=== PATIENT | female | born 1960 | race Caucasian/White ===

== ENCOUNTER 2022-08-28 10:18 | Outpatient (CLI) | payer BC ==
[2022-08-28] MEDS ORDERED: Magnevist 469MG/ML 20 ML VIAL ONE (13:42)
== END 2022-08-28 10:19 | disposition home or self-care (01) ==
LOC: MRI 10:18
PROVIDERS: ATTEND Radiology Radiation Oncology
DX: D32.0 Benign neoplasm of cerebral meninges (principal)
CPT/HCPCS: 70553; 82565; A9579

== ENCOUNTER 2023-03-06 13:01 | Outpatient (CLI) | payer BC ==
[2023-03-06] MEDS ORDERED: Magnevist 469MG/ML 20 ML VIAL ONE (13:09)
== END 2023-03-06 13:02 | disposition home or self-care (01) ==
LOC: BICMRI 13:01
PROVIDERS: ATTEND Neurological Surgery
DX: D32.0 Benign neoplasm of cerebral meninges (principal); G93.6 Cerebral edema; M50.11 Cervical disc disorder with radiculopathy, high cervical region; M50.121 Cervical disc disorder at C4-C5 level with radiculopathy
CPT/HCPCS: 70553; 72141; 82565; A9579

== ENCOUNTER 2024-05-25 08:44 | Outpatient (CLI) | payer BC ==
[2024-05-25] MEDS ORDERED: Magnevist 469MG/ML 20 ML VIAL ONE (11:13)
== END 2024-05-25 08:45 | disposition home or self-care (01) ==
LOC: MRI 08:44
PROVIDERS: ATTEND Radiology Radiation Oncology
DX: D32.0 Benign neoplasm of cerebral meninges (principal)
CPT/HCPCS: 36415; 70553; 76376; 82565; A9579